=== PATIENT | male | born 1995 | race Caucasian/White ===

== ENCOUNTER 2017-07-19 16:21 | Emergency (ER) | payer OTHER ==
[~2017-07-19] VITALS: Ht 180.3 cm; Wt 82.0 kg
[2017-07-19 16:23] VITALS: TEMP 37; Ht 180.3 cm; Wt 82.0 kg
[2017-07-19] MEDS ORDERED: EpINEphrine INJ 1MG/ML AMP 1 MG/ML AMP IM STA (16:34)
[2017-07-19] MEDS ORDERED: METHYLPREDNISOLONE 125 MG VIAL IV STA (16:34)
[2017-07-19] MEDS ORDERED: RANITIDINE HCL 50 MG/100 ML D5W IV STA (16:34)
[2017-07-19] MEDS ORDERED: DiphenhydrAMINE HCL 50 MG/ML VIAL IV STA (16:34)
[2017-07-19] MEDS ORDERED: EPP3/2 IM (16:44)
[2017-07-19] MEDS ORDERED: ADAP0.1C5 TOP (16:44)
[2017-07-19] MEDS ORDERED: PRED20TA PO (17:33)
--- NOTE | 2017-07-19 17:33 | EMERGENCY ROOM VISIT NOTE ---
History Report prepared by Janisibjuan manuel: Morenita Roy Under the Supervision of: Dr. Houston Graves D.O. First contact with patient: 16:26 Chief Complaint: BITE Stated Complaint: BEE STING ON LIP History of Present Illness The patient is a 42 year old male who presents to the Emergency Room with complaints of constant lower lip swelling beginning 1 hour ago. The patient states that he was stung by a bee today on his lower lip and is now having lower lip pain and swelling. He reports that he has been stung before 3 times in his arm when he was 18 and his arm swelled significantly. The patient denies any difficulty breathing. Source of History: patient Onset: 1 hour ago Position: lip (lower) Quality: other (swelling) Timing: constant Note: Pt complains of lower lip pain. Denies any difficulty breathing. Review of Systems See HPI for pertinent positives & negatives. A total of 10 systems reviewed and were otherwise negative. Past Medical & Surgical Medical Problems: (1) No Known Active Medical Problems Family History No pertinent family history stated. Social History Occupation Status: employed Current/Historical Medications Scheduled Adapalene (Differin), 1 APPLN TOP HS Prednisone (Prednisone), 2 TAB PO DAILY Scheduled PRN Epinephrine (Epipen), 0.3 MG IM UD PRN for ALLERGIC REACTION Allergies Coded Allergies: Bee Venom (Verified Allergy, Severe, ANAPHYLAXIS, 07/19/17) Cat Dander (Verified Allergy, Unknown, Unknown, 07/19/17) Dog Dander (Verified Allergy, Unknown, Unknown, 07/19/17) POLLEN (Verified Allergy, Unknown, Unknown, 07/19/17) Physical Exam Vital Signs Date Time Temp Pulse Resp B/P (MAP) Pulse Ox O2 Delivery O2 Flow Rate FiO2 07/19/17 17:19 91 16 120/60 100 Room Air 07/19/17 17:09 78 07/19/17 16:23 37.0 95 18 128/77 97 Physical Exam CONSTITUTIONAL/VITAL SIGNS: Reviewed / noted above. GENERAL: Non-toxic in appearance. INTEGUMENTARY: Warm, dry, and [place]. No hives. HEAD: Normocephalic. EYES: without scleral icterus or trauma. ENT/OROPHARYNX: clear and moist. edema to the right lower half of the lip, no intraoral mucosal involvement. LYMPHADENOPATHY/NECK: Is supple without lymphadenopathy or meningismus. RESPIRATORY: Lungs clear and equal. No stridor or wheezing. CARDIOVASCULAR: Regular rate and rhythm. GI/ABDOMEN: Soft and nontender. No organomegaly or pulsatile mass. No rebound or guarding. Normal bowel sounds. EXTREMITIES: Warm and well perfused. BACK: No CVA tenderness. NEUROLOGICAL: Intact without focal deficits. PSYCHIATRIC: normal affect. MUSCULOSKELETAL: Normally developed with good muscle tone. Medical Decision & Procedures Medications Administered Medications (Trade) Dose Ordered Sig/Gianluca Route Start Time Stop Time Status Last Admin Dose Admin Ranitidine HCl (zANTac IV) 50 mg NOW STAT IV 07/19/17 16:34 07/19/17 16:35 DC 07/19/17 16:46 50 MG Methylprednisolone Sodium Succinate (Solu-Medrol IV) 125 mg NOW STAT IV 07/19/17 16:34 07/19/17 16:35 DC 07/19/17 16:46 125 MG Diphenhydramine HCl (Benadryl Inj) 25 mg NOW STAT IV 07/19/17 16:34 07/19/17 16:35 DC 07/19/17 16:46 25 MG Epinephrine HCl (EpINEphrine INJ 1MG/ML AMP/VIAL) 0.3 mg NOW STAT IM 07/19/17 16:34 07/19/17 16:35 DC 07/19/17 16:44 0.3 MG ED Course 1626: Previous medical records were reviewed. The patient was evaluated in room B2. A complete history and physical examination was performed. 1634: Epinephrine HCl 0.3mg IM, Benadryl Inj 25mg IV, Solu-Medrol IV 125mg IV, Zantac IV 50mg IV. 1719: I reevaluated and updated the patient. 1734: On reevaluation, the patient is doing well. I discussed the results and findings with the patient. He verbalized agreement of the treatment plan. The patient was discharged home. Medical Decision Differential diagnosis: Etiologies such as allergic reaction, anaphylaxis, urticaria, Fink-Rancho syndrome, toxic epidermal necrolysis, erythema multiforme, cellulitis, as well as others were entertained. This is a 22-year-old male who presents to the ED with a chief complaint of a bee sting to the right lower lip. It occurred about an hour prior to arrival. The patient and is any other specific complaints. Denies shortness of breath, fevers or recent illness. Denies any difficulty swallowing. He is no hives. His exam reveals swelling to the right lower lip. The swelling is moderate. It does not involve mucous membranes intraorally. He has no upper airway stridor. There is no wheezing. He has no hives. The patient's exam is otherwise unremarkable other than the local swelling to the right lower lip. The patient was given IM epinephrine, IV site Medrol, IV Benadryl and IV Pepcid. On reassessment, the patient's lower lip edema has not changed. The patient does not have any new symptoms. He is felt to be stable for discharge and outpatient follow-up. Prescription given for prednisone. He will also take Benadryl. Medication Reconcilliation Current Medication List: was personally reviewed by me Blood Pressure Screening Patient's blood pressure: Normal blood pressure Blood pressure disposition: Did not require urgent referral Impression Primary Impression: Local reaction to bee sting Scribe Attestation The scribe's documentation has been prepared under my direction and personally reviewed by me in its entirety. I confirm that the note above accurately reflects all work, treatment, procedures, and medical decision making performed by me. Departure Information Dispostion Home / Self-Care Prescriptions Prednisone (Prednisone) 20 Mg Tab 2 TAB PO DAILY for 4 Days, #8 TAB Prov: Houston Graves D.O. 07/19/17 Referrals No Doctor, Assigned (PCP) Forms HOME CARE DOCUMENTATION FORM, IMPORTANT VISIT INFORMATION Patient Instructions My [facility] Additional Instructions Take Benadryl 25 mg every 6 hours for the next 3 days. Prednisone as prescribed. Follow-up with your doctor for further care and evaluation in 1-4 days if symptoms persist. Return to the emergency department for worsening or new symptoms or any concerns. You have been examined and treated today on an emergency basis only. This is not a substitute for, or an effort to provide, complete comprehensive medical care. It is impossible to recognize and treat all injuries or illnesses in a single emergency department visit. It is therefore important that you follow up closely with your doctor. Call as soon as possible for an appointment.
[2017-07-19 17:46] VITALS: BP 106/54; PULSE 87; O2SAT 99
== END 2017-07-19 17:49 | disposition home or self-care (01) ==
LOC: C.EDB 16:23 → EDBD 16:23 → C.EDB 17:49
DX: T63.441A Toxic effect of venom of bees, accidental (unintentional), initial encounter (principal); W57.XXXA Bitten or stung by nonvenomous insect and other nonvenomous arthropods, initial encounter; Z87.892 Personal history of anaphylaxis